=== PATIENT | female | born 1965 | race Caucasian/White ===

== ENCOUNTER 2019-08-30 06:15 | Emergency (ER) | payer OTHER ==
--- OUTSIDE RECORDS SUMMARY | 2019-08-30 06:18 | XMS REPORT | Clinical Summary ---
:1965 Author Organization [facility] Address [address] [place] [address] Care Team Providers Name Role Phone Asked, No Pcp Primary Care Provider Unavailable Allergies No Known Allergies Medications Not on file Active Problems Not on file Encounters Date Type Specialty Care Team Description 10/28/2018 Emergency Emergency Medicine Jose Maria Duron in, unspecified MD Bib type (Primary D x) after 08/29/2018 Social History Tobacco Use Types Packs/Day Years Used Date Never Assessed Sex Assigned at Date Recorded Not on file Job Start Date Occupation Industry Not on file Not on file Not on file Travel History Travel Start Travel End No recent travel history available. Last Filed Vital Signs Vital Sign Reading Time Taken Comments Blood Pressure 120/80 10/28/2018 10:49 PM CDT Pulse 70 10/28/2018 10:49 PM CDT Temperature 36.7 C (98 F) 10/28/2018 9:17 PM CDT Respiratory Rate 18 10/28/2018 10:49 PM CDT Oxygen Saturation 100% 10/28/2018 10:49 PM CDT Inhaled Oxygen Concentration - - Weight - - Height 165.1 cm (5' 5") 10/28/2018 6:40 PM CDT Body Mass Index - - Plan of Treatment Health Maintenance Due Date Last Done Comments CERVICAL CANCER SCREENING 07/26/1984 BREAST CANCER SCREENING 07/26/2013 COLONOSCOPY SCREENING 07/26/2013 SHINGLES VACCINES (#1) 07/26/2013 INFLUENZA VACCINE 09/19/2019 Procedures Procedure Name Priority Date/Time Associated Comments Diagnosis CT ANGIOGRAM PE CHEST STAT 10/28/2018 10:01 Re sults for this PM CDT procedure are i n the results section. ECG ED PRELIMINARY Routine 10/28/2018 7:34 Resul ts for this INTERPRETATION PM CDT procedure are in the results section. XR CHEST 2 VW STAT 10/28/2018 7:20 Results fo r this PM CDT procedure are i n the results section. ESTIMATED GFR STAT 10/28/2018 7:05 Results fo r this PM CDT procedure are i n the results section. B NATRIURETIC PEPTIDE STAT 10/28/2018 7:05 Re sults for this PM CDT procedure are i n the results section. TROPONIN STAT 10/28/2018 7:05 Results for this PM CDT procedure are i n the results section. COMPREHENSIVE METABOLIC STAT 10/28/2018 7:05 Results for this PANEL PM CDT procedure are i n the results section. HC COMPLETE BLD COUNT STAT 10/28/2018 7:05 Re sults for this W/AUTO DIFF PM CDT procedure are i n the results section. ECG 12-LEAD STAT 10/28/2018 6:36 Results for this PM CDT procedure are i n the results section. after 08/29/[address] Angiogram Pe Chest (10/28/2018 10:01 PM CDT) Specimen Narrative Performed At EXAMINATION: CT ANGIOGRAM PE CHEST [facility] CLINICAL HISTORY: abnl CXR atypical ch est pain TECHNIQUE: CT angiographic images of the chest were obtained during intravenous administration of iodinated contrast. Comp uterized reformatted images and 3-D MIP images were also obtain ed and archived (CT pulmonary embolus protocol). CT sc ans are performed using radiation dose reduction techniques. Technical factors are evaluated and adjusted to ensure appropriate moder ation of exposure. Automated dose management technology is applied to a djust radiation exposure while achieving a diagnostic quality image. CT imaging was performed with iterative reconstruction techniques and/or automated exposure control to reduce rad iation dose. COMPARISON: None. Findings: There are no filling defects within the pulmonary roger rial system to suggest a pulmonary embolus. Dissection is not well evaluated on this phase of cont rast. No aneurysm is seen. No consolidation or pleural effusion is seen. No pulmonary mass or nodule is seen. No mediastinal hematoma or lymphadenopat hy is seen. Visualized upper abdomen shows no acute abnormality. M oderate hiatal hernia is noted. IMPRESSION: 1. No evidence of pulmonary embolus. 2. Moderate hiatal hernia. 3. Otherwise no acute abnormality identi fied in the chest. [facility]-[id number] Procedure Note Hm Interface, Radiology Results Incoming - 10/28/2018 10:20 PM CDT EXAMINATION: CT ANGIOGRAM PE CHEST CLINICAL HISTORY: abnl CXR atypical evelin st pain TECHNIQUE: CT angiographic images of e chest were obtained during intravenous administration of iodinated contrast. Computerized reformatted images and 3-D MIP images were also obtained and archived (CT pulmonary embolus protocol). CT scans are performed using radiation dose reduction techniques. Technical factors are evaluated and adjusted to ensure appropriate moderation of exposure. Automated dose management technology is applied to adjust radiation exposure while achieving a diagnostic quality image. CT imaging was performed with iterative reconstruction techniques and/or automated exposure control to reduce radiation dose. COMPARISON: None. Findings: There are no filling defects within the pulmonary arterial system to suggest a pulmonary embolus. Dissection is not well evaluated on this phase of contrast. No aneurysm is seen. No consolidation or pleural effusion is seen. No pulmonary mass or nodule is seen. No mediastinal hematoma or lymphadenopat hy is seen. Visualized upper abdomen shows no acute abnormality. Moderate hiatal hernia is noted. IMPRESSION: 1. No evidence of pulmonary embolus. 2. Moderate hiatal hernia. 3. Otherwise no acute abnormality identi fied in the chest. [facility]-[id number] Performing Organization Address City/State/Zipcode Phone Number [facility] [address] [place] [address] ECG ED Preliminary Interpretation - Not an Order (10/28/2018 7:34 PM CDT) Narrative Performed At Jose Maria Duron MD 9 12:34 AM ECG ED Preliminary Interpretation - Not an Order Performed by: Jose Maria Duron MD Authorized by: Jose Maria Duron MD ECG reviewed by ED Physician in the abse nce of a porter bath: yes Interpretation: Interpretation: normal Rate: ECG rate: 75 ECG rate assessment: normal Rhythm: Rhythm: sinus rhythm QRS: QRS axis: Normal QRS intervals: Normal ST segments: ST segments: Normal T waves: T waves: normal Other findings: Other findings: poor R wave progression XR Chest 2 Vw (10/28/2018 7:20 PM CDT) Specimen Narrative Performed At EXAMINATION: XR CHEST 2 VW [facility] CLINICAL HISTORY: Chest Pain COMPARISON: 2 view chest from 2 IMPRESSION: PA and lateral radiographs of the chest was submitted for interpretation. The lungs are clear. The mediastinal contours and cardiac silhouette are un remarkable. Rounded density is seen in the region of the hiatus wh ich may represent a small hiatal hernia. This can be better evaluated wi CT chest as clinically indicated. The bones are unremarkable. [id number] Procedure Note Hm Interface, Radiology Results Incoming - 10/28/2018 7:25 PM CDT EXAMINATION: XR CHEST 2 VW CLINICAL HISTORY: Chest Pain COMPARISON: 2 view chest from 04/18/2011 IMPRESSION: PA and lateral radiographs of the chest was submitted for interpretation. The lungs are clear. The mediastinal contours and cardiac sofia houette are unremarkable. Rounded density is seen in the region of the hiatus which may represent a small hiatal hernia. This can be better evaluated with CT chest as clinically indicated. The bones are unremarkable. [facility]-[id number] Performing Organization Address [facility]/Zipcode Phone Number [facility] [address] [place] [phone] Estimated GFR (10/28/2018 7:05 PM CDT) Pathologist [facility] Estimated GFR 64 mL/min/1.73 [facility] Comment: HOSPITAL Catergory Units Interpretation G1 >=90 Normal or high G2 60-89 Mildly decreased G3a 45-59 Mildly to moderately decreas ed G3b 30-44 Moderately to severely decre ased G4 15-29 Severely decreased G5 <15 Kidney failure The eGFR was calculated using the Chronic Kidney Disea se Epidemiology Collaboration (CKD-EPI) equation. Interpretation is based on recommendations of the National Kidney Foundation-Kidney Disease Outcomes Riley lity Initiative (NKF-KDOQI) published in 2014. Specimen Plasma specimen Performing Organization Address [facility] Phone Number [facility] DEPARTMENT OF PATHOLOGY AND [address] [place] [address] [phone] [address] Troponin (10/28/2018 7:05 PM CDT) Troponin <0.006 0.000 - 0.040 [facility] Comment: ng/mL [facility] changed methodology eff ective: 06/24/2018 at 10:00 am The new method has a 99th percentile cutoff of 0.040 n g/mL Specimen Plasma specimen Performing Organization Address [facility] Phone Number [facility] DEPARTMENT OF PATHOLOGY AND [address] [place] [address] [phone] [address] CBC with platelet and differential (10/28/2018 7:05 PM CDT) WBC 10.44 4.50 - 11.00 [facility] k/uL HOSPITAL RBC 4.90 4.20 - 5.50 [facility] m/uL [facility] HGB 15.0 12.0 - 16.0 [facility] g/dL [facility] HCT 47.2 (H) 37.0 - 47.0 % [facility] MCV 96.3 82.0 - 100.0 [facility] MCH 30.6 27.0 - 34.0 pg [facility] MCHC 31.8 31.0 - 37.0 [facility] gdL [facility] RDW - SD 43.4 37.0 - 55.0 fL [facility] MPV 10.2 8.8 - 13.2 fL [facility] Platelet count 283 150 - 400 k/uL [facility] Nucleated RBC 0.00 /100 WBC [facility] Neutrophils 52.3 39.0 - 69.0 % [facility] Lymphocytes 38.0 25.0 - 45.0 % [facility] Monocytes 7.6 0.0 - 10.0 % [facility] Eosinophils 1.2 0.0 - 5.0 % [facility] Basophils 0.6 0.0 - 1.0 % [facility] Immature granulocytes 0.3Comment: 0.0 - 1.0 % [facility] "Immature [facility] granulocytes" (promyelocytes , myelocytes, metamyelocytes ) Specimen Blood Performing Organization Address City/State/Zipcode Phone Number [facility] DEPARTMENT OF PATHOLOGY AND [address] [place] [address] [phone] [address] B natriuretic peptide (10/28/2018 7:05 PM CDT) Pathologist Sig nature BNP 9 0 - 100 pg/mL [facility] Specimen Blood Performing Organization Address City/State/Zipcode Phone Number [facility] DEPARTMENT OF PATHOLOGY AND [address] [place] [address] [phone] [address] Comprehensive metabolic panel (10/28/2018 7:05 PM CDT) Sodium 143 135 - 148 [facility] mEq/L [facility] Potassium 4.0 3.5 - 5.0 [facility] mEq/L [facility] Chloride 102 98 - 112 [facility] mEq/L [facility] CO2 28 24 - 31 mEq/L [facility] Anion gap 13@ANIO 7 - 15 mEq/L [facility] BUN 15 6 - 20 mg/dL [facility] Creatinine 0.99 (H) 0.50 - 0.90 [facility] mg/dL [facility] Glucose 98 65 - 99 mg/dL [facility] Calcium 9.7 8.3 - 10.2 [facility] mg/dL [facility] Protein 8.2 6.3 - 8.3 [facility] Comment: g/dL HOSPITAL 4.6-7.0 g/dL 1 week 4.4-7.6 g/dL 7 months-1year 5.1-7.3 g/dL 1-2 years 5.6-7.5 g/dL >3 years 6.0-8.0 g/dL 18-150 6.3-8.3 g/dL Albumin 4.3 3.5 - 5.0 [facility] g/dL [facility] A/G ratio 1.1 0.7 - 3.8 [facility] Alkaline phosphatase 100 35 - 104 U/L [facility] AST 16 10 - 35 U/L [facility] ALT 12 5 - 50 U/L [facility] Total bilirubin 0.8 0.0 - 1.2 [facility] mg/dL [facility] Specimen Plasma specimen Performing Organization Address City/State/Zipcode Phone Number [facility] DEPARTMENT OF PATHOLOGY AND [address] [place] [phone] GENOMIC MEDICINE [address] [address] ECG 12 lead (10/28/2018 6:36 PM CDT) Pathologist Sig nature Ventricular rate 75 [facility]USE Atrial rate 75 [facility] IN interval 134 [facility] QRSD interval 72 [facility] QT interval 374 [facility] QTC interval 417 [facility] MUSE P axis 1 33 [facility] MUSE QRS axis 1 0 [facility] MUSE T wave axis 34 [facility] MUSE EKG impression Normal sinus [facility] MUSE rhythm-Normal ECG-In automated comparison with ECG of 19-APR-2011 05:14,-QRS duration has decreased-Electronicall y Signed By Sudheer CASTILLO, [facility] ([id number]) on 10/29/2018 10:55:33 PM Specimen Narrative Performed At This result has an attachment that is no t available. Performing Organization Address City/State/Zipcode Phone Number [facility] MUSE [address] [place] [address] after 08/29/2018 Advance Directives For more information, please contact: [phone] Type Date Recorded Patient Medical Associate Explanati on Advance Directives, Living Will and Medical Power of Credit Reference Clerk
[2019-08-30 06:53] LABS: Absolute Lymphocytes (CBC) 2.1 K/uL (0.7-4.9); Basophils % 0.3 % (0-1.3); Hematocrit 46.5 % (36.0-45.0); Lymphocytes % 34.6 % (15.3-44.8); MPV 8.7 fL (7.6-11.3)
[2019-08-30 07:10] LABS: Albumin 3.7 g/dL (3.4-5.0); Bilirubin Direct 0.1 mg/dL (0-0.2); Bilirubin Total 0.6 mg/dL (0.2-1.0); Potassium 4.1 mmol/L (3.5-5.1); Protein, Total 7.6 g/dL (6.4-8.2)
[2019-08-30] MEDS ORDERED: PROMETHAZINE INJ 25 MG/ML AMP ONE (07:57)
[2019-08-30] MEDS ORDERED: NA CHLORIDE 0.9% 1,000 ML ONE (07:57)
--- NOTE | 2019-08-30 08:19 | EDPHYS ---
Physician Documentation [facility] Name: Maris Rodríguez Age: 54 yrs Sex: Female : 1965 Arrival Date: 08/30/2019 Time: 06:16 Bed 6 Private MD: ED Physician Elio Bright HPI: 08/29 07:08 This 54 yrs old Female presents to ER via Wheelchair with complaints of jr8 Nausea/Vomiting/Diarrhea. 07:08 The patient presents to the emergency department with nausea, vomiting, diarrhea. jr8 Onset: The symptoms/episode began/occurred gradually, 3 day(s) ago. Possible causes: unknown. The symptoms are aggravated by food , The symptoms are alleviated by nothing. Associated signs and symptoms: Pertinent positives: body aches, chills, cough. Severity of symptoms: At their worst the symptoms were moderate in the emergency department the symptoms are unchanged. The patient has not experienced similar symptoms in the past. The patient has not recently seen a physician. 07:08 Patient stated that she was exposed to COVID. Now having symptoms . jr8 Historical: - Allergies: 06:18 PENICILLINS; sg - PSHx: 06:18 None; sg - Immunization history:: Adult Immunizations up to date. - Social history:: Smoking status: Patient denies any tobacco usage or history of. ROS: 07:08 Eyes: Negative for injury, pain, redness, and discharge, ENT: Negative for injury, jr8 pain, and discharge, Neck: Negative for injury, pain, and swelling, Cardiovascular: Negative for chest pain, palpitations, and edema, Back: Negative for injury and pain, MS/Extremity: Negative for injury and deformity, Skin: Negative for injury, rash, and discoloration, Neuro: Negative for headache, weakness, numbness, tingling, and seizure. 07:08 Constitutional: Positive for body aches, chills, malaise. 07:08 Respiratory: Positive for cough, Negative for dyspnea on exertion, shortness of breath, sputum production, wheezing. 07:08 Abdomen/GI: Positive for nausea, vomiting, and diarrhea, abdominal cramps, Negative for Exam: 07:08 Eyes: Pupils equal round and reactive to light, extra-ocular motions intact. Lids and jr8 lashes normal. Conjunctiva and sclera are non-icteric and not injected. Cornea within normal limits. Periorbital areas with no swelling, redness, or edema. ENT: Nares patent. No nasal discharge, no septal abnormalities noted. Tympanic membranes are normal and external auditory canals are clear. Oropharynx with no redness, swelling, or masses, exudates, or evidence of obstruction, uvula midline. Mucous membranes moist. Neck: Trachea midline, no thyromegaly or masses palpated, and no cervical lymphadenopathy. Supple, full range of motion without nuchal rigidity, or vertebral point tenderness. No Meningismus. Cardiovascular: Regular rate and rhythm with a normal S1 and S2. No gallops, murmurs, or rubs. Normal PMI, no JVD. No pulse deficits. Respiratory: Lungs have equal breath sounds bilaterally, clear to auscultation and percussion. No rales, rhonchi or wheezes noted. No increased work of breathing, no retractions or nasal flaring. Abdomen/GI: Soft, non-tender, with normal bowel sounds. No distension or tympany. No guarding or rebound. No evidence of tenderness throughout. Back: No spinal tenderness. No costovertebral tenderness. Full range of motion. Skin: Warm, dry with normal turgor. Normal color with no rashes, no lesions, and no evidence of cellulitis. MS/ Extremity: Pulses equal, no cyanosis. Neurovascular intact. Full, normal range of motion. Neuro: Awake and alert, GCS 15, oriented to person, place, time, and situation. Cranial nerves II-XII grossly intact. Motor strength 5/5 in all extremities. Sensory grossly intact. Cerebellar exam normal. Normal gait. Vital Signs: 06:18 BP 142 / 77; Pulse 100; Resp 18; Pulse Ox 100% on R/A; sg 07:00 BP 110 / 66; Pulse 58; Resp 18; Pulse Ox 100% ; bp 08:00 BP 96 / 56; Pulse 53; Resp 17; Temp 99; Pulse Ox 98% on R/A; bp 09:13 BP 105 / 65; Pulse 62; Resp 17; Temp 98.5; Pulse Ox 100% ; bp MDM: 06:20 [facility] Data reviewed: vital signs, nurses notes, lab test result(s), and as a result, I will jr8 discharge patient. Data interpreted: Pulse oximetry: on room air is 100 %. Interpretation: normal. Counseling: I had a detailed discussion with the patient and/or guardian regarding: the historical points, exam findings, and any diagnostic results supporting the discharge/admit diagnosis, lab results, the need for outpatient follow up, a family practitioner, to return to the emergency department if symptoms worsen or persist or if there are any questions or concerns that arise at home. Response to treatment: the patient's symptoms have markedly improved after treatment, patient is well hydrated. 08/29 06:24 Order name: Basic Metabolic Panel; Complete Time: :08/29 06:24 Order name: CBC with Diff; Complete Time: :08/29 06:24 Order name: Hepatic Function; Complete Time: 08/29 06:24 Order name: Lipase; Complete Time: :08/29 06:24 Order name: COVID-19 8 08/29 06:24 Order name: IV Saline Lock; Complete Time: 07:08/29 06:24 Order name: Labs collected and sent; Complete Time: : Administered Medications: 07:20 Drug: NS 0.9% 1000 ml Route: IV; Rate: 1000 ml; Site: right antecubital; bp 09:15 Follow up: IV Status: Completed infusion; IV Intake: 1000ml bp 07:20 Drug: Promethazine 12.5 mg Route: IVP; Site: right antecubital; bp 09:15 Follow up: Response: Nausea is decreased bp Disposition: 08/30 07:43 Co-signature as Attending Physician, Elio Bright MD I agree with the assessment and 4 plan of care. Disposition: 08/30/19 08:18 Discharged to Home. Impression: Nausea and vomiting, Diarrhea, unspecified. - Condition is Stable. - Discharge Instructions: Diarrhea, Adult, Nausea and Vomiting, Adult, COVID-19. - Prescriptions for promethazine 25 mg Oral Tablet - take 1 tablet by ORAL route every 6 hours As needed; 20 tablet. - Work release form, Medication Reconciliation Form, Thank You Letter, Antibiotic Education, Prescription Opioid Use form. - Follow up: Private Physician; When: 1 week; Reason: Recheck today's complaints, Continuance of care, Re-evaluation by your physician. - Problem is new. - Symptoms have improved. Addendum: 09/02/2019 08:57 Addendum: Called patient and contacted \T\ [phone] to notify of COVID-19 positive results. rn Feels better, questions answered, and told health department would contact for further recommendations. . Signatures: Dispatcher [employer] EDAlex Dean RN RN sg Nieto, Roman, MD MD rn Roszak, Josh, IRA PA jr8 Mat Rodriguez RN RN bp Elio Bright MD MD tw4 Corrections: (The following items were deleted from the chart) 08/29 09:15 08:18 08/30/2019 08:18 Discharged to Home. Impression: Nausea and vomiting; Diarrhea, bp unspecified. Condition is Stable. Forms are Medication Reconciliation Form, Thank You Letter, Antibiotic Education, Prescription Opioid Use. Follow up: Private Physician; When: 1 week; Reason: Recheck today's complaints, Continuance of care, Re-evaluation by your physician. Problem is new. Symptoms have improved. jr8
--- NOTE | 2019-08-30 08:19 | ER ---
Nurse's Notes [facility] Name: Maris Rodríguez Age: 54 yrs Sex: Female : 1965 Arrival Date: 08/30/2019 Time: 06:16 Bed 6 Private MD: Diagnosis: Nausea and vomiting;Diarrhea, unspecified Presentation: 08/29 06:18 Acuity: OCTAVIO 3 sg 06:18 Chief complaint: Patient states: Cough this morning, reports having nausea and vomiting sg as well as diarrhea that began yesterday. States symptoms worsening this morning, denies chills/fever. Coronavirus screen: Proceed with normal triage. Ebola Screen: Patient negative for fever greater than or equal to 101.5 degrees Fahrenheit, and additional compatible Ebola Virus Disease symptoms Patient denies exposure to infectious person. Patient denies travel to an Ebola-affected area in the 21 days before illness onset. No symptoms or risks identified at this time. Initial Sepsis Screen: Does the patient meet any 2 criteria? No. Patient's initial sepsis screen is negative. Does the patient have a suspected source of infection? No. Patient's initial sepsis screen is negative. Risk Assessment: Do you want to hurt yourself or someone else? Patient reports no desire to harm self or others. Onset of symptoms was August 30, 2019. Care prior to arrival: None. Transition of care: patient was not received from another setting of care. 06:18 Method Of Arrival: Wheelchair sg Triage Assessment: 07:00 General: Appears distressed, uncomfortable, Behavior is cooperative, appropriate for bp age, anxious. Pain: Denies pain. EENT: No deficits noted. Neuro: No deficits noted. Cardiovascular: Rhythm is sinus rhythm. Respiratory: Airway is patent. GI: Reports diarrhea, nausea, vomiting. : No signs and/or symptoms were reported regarding the genitourinary system. Derm: No deficits noted. Musculoskeletal: No deficits noted. Historical: - Allergies: 06:18 PENICILLINS; sg - PSHx: 06:18 None; sg - Immunization history:: Adult Immunizations up to date. - Social history:: Smoking status: Patient denies any tobacco usage or history of. Screenin:42 Abuse screen: Denies threats or abuse. Nutritional screening: No deficits noted. ea Tuberculosis screening: No symptoms or risk factors identified. Fall Risk IV access (20 points). Assessment: 06:43 General: Appears in no apparent distress. Behavior is calm, cooperative, appropriate ea for age. Pain: Complains of pain in abdomen. Neuro: Level of Consciousness is awake, alert, obeys commands, Oriented to person, place, time. Cardiovascular: Patient's skin is warm and dry. Respiratory: Airway is patent Respiratory effort is even, unlabored, Respiratory pattern is regular, symmetrical. GI: Abdomen is. 08:00 Reassessment: ALL CURRENT ORDERS COMPLETED. RESULTS PENDING. bp 08:29 Reassessment: D/C ON HOLD FOR IVF. bp 09:12 Reassessment: IVF COMPLETED. PT D/C HOME AMBULATORY FOR HOME QUARANTINE. DX WITH bp NAUSEA, VOMITING AND DIARRHEA. Vital Signs: 06:18 BP 142 / 77; Pulse 100; Resp 18; Pulse Ox 100% on R/A; sg 07:00 BP 110 / 66; Pulse 58; Resp 18; Pulse Ox 100% ; bp 08:00 BP 96 / 56; Pulse 53; Resp 17; Temp 99; Pulse Ox 98% on R/A; bp 09:13 BP 105 / 65; Pulse 62; Resp 17; Temp 98.5; Pulse Ox 100% ; bp ED Course: 06:16 Patient arrived in ED. ds1 06:17 Arm band placed on. sg 06:18 Triage completed. sg 06:20 Jhonny Goodwin PA is PHCP. jr8 06:20 Elio Bright MD is Attending Physician. jr8 06:43 Patient has correct armband on for positive identification. Bed in low position. Call ea light in reach. Side rails up X 1. 07:00 Inserted saline lock: 20 gauge in right antecubital area, using aseptic technique. bp Blood collected. 07:14 Mat Rodriguez, RN is Primary Nurse. bp 09:13 No provider procedures requiring assistance completed. IV discontinued, intact, bp bleeding controlled, No redness/swelling at site. Pressure dressing applied. Administered Medications: 07:20 Drug: NS 0.9% 1000 ml Route: IV; Rate: 1000 ml; Site: right antecubital; bp 09:15 Follow up: IV Status: Completed infusion; IV Intake: 1000ml bp 07:20 Drug: Promethazine 12.5 mg Route: IVP; Site: right antecubital; bp 09:15 Follow up: Response: Nausea is decreased bp Intake: 09:15 IV: 1000ml; Total: 1000ml. bp Outcome: 08:18 Discharge ordered by . jr8 09:15 Discharged to home ambulatory. bp 09:15 Condition: stable 09:15 Discharge instructions given to patient, Instructed on discharge instructions, follow up and referral plans. Demonstrated understanding of instructions, follow-up care, medications, Prescriptions given X 1. 09:15 Patient left the ED. bp Addendum: 09/02/2019 10:28 Addendum: COVID-19 Result: Positive result giiven to ED physician to notify pt. i w Physician: Luis Armando Pulido MD Physician was able to contact pt and pt was notified of positive COVID-19 swab result. Physician answered pt questions. Signatures: Alex Schilling, RN RN Suki Rangel ds1 Yoselyn Quick, RN RN iw Jhonny Goodwin PA PA jr8 Courtney Eddy RN Mat Ozuna ea RN RN bp Corrections: (The following items were deleted from the chart) 07 09:13 09:12 Reassessment: IVF COMPLETED. PT D/C HOME AMBULATORY FOR HOME QUARANTINE. DX WITH bp COVID bp 09/01 13:04 10:28 Addendum: COVID-19 Result: Positive result giiven to ED physician to notify pt. iw Physician: Mat Rodriguez RN Physician was able to contact pt and pt was notified of positive COVID-19 swab result. Physician answered pt questions. iw
[2019-08-30 09:26] VITALS: BP 105/65; TEMP 98.5; O2SAT 100
== END 2019-08-30 09:15 | disposition home or self-care (01) ==
LOC: ER 06:15
DX: U07.1 COVID-19 (principal); R19.7 Diarrhea, unspecified; Z88.0 Allergy status to penicillin
CPT/HCPCS: 96361; 85025; 80048; 36415; 80076; 83690; 96374; 99284; U0001; J2550; J7030

== ENCOUNTER 2020-10-08 06:34 | Emergency (ER) | payer BC, OTHER ==
--- NOTE | 2020-10-08 09:00 | ER ---
Nurse's Notes [facility] Name: Maris Rodríguez Age: 55 yrs Sex: Female : 1965 Arrival Date: 10/08/2020 Time: 06:40 Bed Waiting Private MD: Diagnosis: Presentation: 10/08 06:55 Chief complaint: Patient states: sore throat, cough, tired, denies fever, has been kg around some people who tested positive with covid. Coronavirus screen: Client denies travel out of the [place] in the last 14 days. Ebola Screen: Patient negative for fever greater than or equal to 101.5 degrees Fahrenheit, and additional compatible Ebola Virus Disease symptoms Patient denies exposure to infectious person. Patient denies travel to an Ebola-affected area in the 21 days before illness onset. No symptoms or risks identified at this time. Initial Sepsis Screen: Does the patient meet any 2 criteria? No. Patient's initial sepsis screen is negative. Does the patient have a suspected source of infection? No. Patient's initial sepsis screen is negative. Risk Assessment: Do you want to hurt yourself or someone else? Patient reports no desire to harm self or others. Onset of symptoms was October 08, 2020. 06:55 Method Of Arrival: Ambulatory kg 06:55 Acuity: OCTAVIO 4 kg Historical: - Allergies: 06:57 PENICILLINS; kg - Home Meds: 06:57 None [Active]; kg - PMHx: 06:57 None; kg - PSHx: 06:57 None; kg - Immunization history:: Client reports receiving the 2nd dose of the Covid vaccine. - Social history:: Smoking status: Patient denies any tobacco usage or history of. Vital Signs: 06:55 Pulse 60; Resp 18; Temp 97.7; Pulse Ox 100% on R/A; Weight 68.04 kg; Height 5 ft. 5 in. kg (165.10 cm); 06:57 BP 116 / 72; kg 06:55 Body Mass Index 24.96 (68.04 kg, 165.10 cm) kg ED Course: 06:40 Patient arrived in ED. bp1 06:57 Triage completed. kg 06:57 Arm band placed on. kg Administered Medications: No medications were administered Outcome: 08:59 Patient left the ED. iw Signatures: Yoselyn Quick RN RN iw Karis Brady Kristen, RN RN kg
[2020-10-08 09:03] VITALS: TEMP 97.7; O2SAT 100
[2020-10-08 09:04] VITALS: BP 116/72
== END 2020-10-08 08:59 | disposition left against medical advice (07) ==
LOC: ER 06:34
DX: Z53.21 Procedure and treatment not carried out due to patient leaving prior to being seen by health care provider (principal); Z20.822 Contact with and (suspected) exposure to COVID-19
CPT/HCPCS: 99281; U0003

== ENCOUNTER 2021-01-09 09:55 | Emergency (ER) | payer BC ==
[2021-01-09] MEDS ORDERED: ONDANSETRON 4 MG (ODT) TAB ONE (11:21)
[2021-01-09] MEDS ORDERED: BENZONATATE 100 MG CAP PO ONE (11:21)
--- NOTE | 2021-01-09 12:03 | RAD REPORT ---
EXAM DESCRIPTION: RAD - Chest Pa And Lat (2 Views) - 01/09/2021 11:54 am CLINICAL HISTORY: Cough;Congestion Chest pain. COMPARISON: Chest Single View dated 04/25/2016; Chest Single View dated 04/24/2016; CHEST PA AND LAT 2 V IEW dated 12/04/2012 FINDINGS: The lungs are clear. The heart is normal in size. No displaced fractures. Small hiatal her christin. IMPRESSION: No acute or concerning finding suspected.
[2021-01-09 12:18] LABS: SARS-COV-2 RT PCR NEGATIVE (NEGATIVE)
--- NOTE | 2021-01-09 12:35 | EDPHYS ---
Physician Documentation [facility] Name: Maris Rodríguez Age: 55 yrs Sex: Female : 1965 Arrival Date: 01/09/2021 Time: 09:56 Bed 10 Private MD: ED Physician Christopher Dhaliwal HPI: 01/09 10:36 This 55 yrs old Female presents to ER via Ambulatory with complaints of Cough, No Taste kb or Smell. 10:36 The patient or guardian reports cough, that is intermittent, described as moderate, kb difficulty breathing, flu symptoms, myalgias. Onset: The symptoms/episode began/occurred 2 day(s) ago. Severity of symptoms: At their worst the symptoms were moderate, in the emergency department the symptoms are unchanged. Modifying factors: The symptoms are alleviated by nothing, the symptoms are aggravated by nothing. Associated signs and symptoms: Pertinent positives: rhinorrhea. The patient has not experienced similar symptoms in the past. The patient has not recently seen a physician. Pt reports malaise, cough, congestion, rib pain from cough, shortness of breath, loss of taste and smell that started 2-3 days ago. . Historical: - Allergies: 10:27 PENICILLINS; aa5 - Home Meds: 10:28 None [Active]; aa5 - PMHx: 10:28 None; aa5 - Immunization history:: Client reports receiving the 2nd dose of the Covid vaccine. - Social history:: Smoking status: Patient denies any tobacco usage or history of. ROS: 10:36 Constitutional: Negative for fever, chills, and weight loss. kb 10:36 ENT: Positive for sinus congestion. 10:36 Respiratory: Positive for cough, shortness of breath, Negative for dyspnea on exertion, hemoptysis, orthopnea, pleurisy, shortness of breath, sputum production, wheezing. 10:36 All other systems are negative. Exam: 10:37 Constitutional: This is a well developed, well nourished patient who is awake, alert, kb and in no acute distress. Head/Face: Normocephalic, atraumatic. ENT: Moist Mucous membranes Respiratory: Respirations even and unlabored. No increased work of breathing, no retractions or nasal flaring. Skin: Warm, dry with normal turgor. Normal color. MS/ Extremity: Pulses equal, no cyanosis. Neurovascular intact. Full, normal range of motion. Neuro: Awake and alert, GCS 15, oriented to person, place, time, and situation. Moves all extremities. Normal gait. Psych: Awake, alert, with orientation to person, place and time. Behavior, mood, and affect are within normal limits. Vital Signs: 10:28 BP 121 / 71; Pulse 84; Resp 20 S; Temp 97.7(TE); Pulse Ox 100% on R/A; Weight 68.04 kg aa5 (R); Height 5 ft. 5 in. (165.10 cm) (R); 10:28 Body Mass Index 24.96 (68.04 kg, 165.10 cm) aa5 MDM: 10:31 Patient medically screened. kb 10:37 Data reviewed: vital signs, nurses notes. Data interpreted: Pulse oximetry: on room air kb is 100 %. Interpretation: normal. 12:30 Counseling: I had a detailed discussion with the patient and/or guardian regarding: the kb historical points, exam findings, and any diagnostic results supporting the discharge/admit diagnosis, lab results, radiology results, the need for outpatient follow up, a family practitioner, to return to the emergency department if symptoms worsen or persist or if there are any questions or concerns that arise at home. 01/09 10:32 Order name: COVID-19/FLU A+B (Document "Date of Onset" if Symptomatic); Complete Time: kb 12:19 01/09 10:35 Order name: Chest Pa And Lat (2 Views) XRAY; Complete Time: 12:15 kb Administered Medications: 11:44 Drug: Ondansetron 4 mg Route: PO; iw 12:47 Follow up: Response: No adverse reaction ld1 11:44 Drug: Tessalon Perle (benzonatate) 100 mg Route: PO; iw 12:47 Follow up: Response: No adverse reaction ld1 12:47 Drug: SOLU-Medrol (methylPREDNISolone sodium succinate) 125 mg Route: IM; Site: left ld1 gluteus; 12:47 Follow up: Response: No adverse reaction ld1 Disposition: 13:40 Co-signature as Attending Physician, Christopher Dhaliwal MD I agree with the assessment and kdr plan of care. Disposition Summary: 01/09/21 12:34 Discharge Ordered Location: Home kb Condition: Stable kb Diagnosis - Acute upper respiratory infection, unspecified kb Followup: kb - With: Emergency Department - When: As needed - Reason: Worsening of condition Followup: kb - With: Private Physician - When: 2 - 3 days - Reason: Recheck today's complaints, Continuance of care, Re-evaluation by your physician Discharge Instructions: - Discharge Summary Sheet kb - Upper Respiratory Infection, Adult, [id number] kb - Viral Respiratory Infection, [id number] kb Forms: - Medication Reconciliation Form kb - Thank You Letter kb - Antibiotic Education kb - Prescription Opioid Use kb Prescriptions: - Protonix 40 mg Oral Tablet - take 1 tablet by ORAL route once daily; 30 tablet; Refills: 0, Product kb Selection Permitted - Zofran 4 mg Oral Tablet - take 1 tablet by ORAL route every 6 hours As needed; 20 tablet; Refills: 0, kb Product Selection Permitted - Tessalon Perles 100 mg Oral Capsule - take 1 capsule by ORAL route every 8 hours As needed; 15 capsule; Refills: 0, kb Product Selection Permitted Signatures: Dispatcher [employer] EDKim Lehman, OFFICE 365 CONSULTANT-C OFFICE 365 CONSULTANT-Ckb Christopher Dhaliwal MD MD kdr Yoselyn Quick RN RN iw Yesika Hare RN RN aa5 Haritha Edouard RN RN ld1 Corrections: (The following items were deleted from the chart) 10:37 10:36 Respiratory: Positive for cough, Negative for dyspnea on exertion, hemoptysis, kb orthopnea, pleurisy, shortness of breath, sputum production, wheezing, kb
--- NOTE | 2021-01-09 12:35 | ER ---
Nurse's Notes [facility] Name: Maris Rodríguez Age: 55 yrs Sex: Female : 1965 Arrival Date: 01/09/2021 Time: 09:56 Bed 10 Private MD: Diagnosis: Acute upper respiratory infection, unspecified Presentation: 01/09 10:28 Chief complaint: Patient states: cough, no smell, and no taste x 3-4 days ago. Pt aa5 states "my ribs hurt from coughing so much". Coronavirus screen: cough unrelated to allergies. Ebola Screen: No symptoms or risks identified at this time. Initial Sepsis Screen: Does the patient meet any 2 criteria? No. Patient's initial sepsis screen is negative. Does the patient have a suspected source of infection? Yes:. Risk Assessment: Do you want to hurt yourself or someone else? Patient reports no desire to harm self or others. Onset of symptoms was December 2020. 10:28 Acuity: OCTAVIO 4 aa5 10:28 Method Of Arrival: Ambulatory aa5 Triage Assessment: 12:55 General: Appears in no apparent distress. comfortable, Behavior is calm, cooperative, ld1 appropriate for age. Pain: Denies pain. Cardiovascular: Capillary refill < 3 seconds Patient's skin is warm and dry. Respiratory: Airway is patent Respiratory effort is even, unlabored, Respiratory pattern is regular, symmetrical. Historical: - Allergies: 10:27 PENICILLINS; aa5 - Home Meds: 10:28 None [Active]; aa5 - PMHx: 10:28 None; aa5 - Immunization history:: Client reports receiving the 2nd dose of the Covid vaccine. - Social history:: Smoking status: Patient denies any tobacco usage or history of. Screenin:55 Abuse screen: Denies threats or abuse. Denies injuries from another. Nutritional ld1 screening: No deficits noted. Tuberculosis screening: No symptoms or risk factors identified. Fall Risk None identified. Vital Signs: 10:28 BP 121 / 71; Pulse 84; Resp 20 S; Temp 97.7(TE); Pulse Ox 100% on R/A; Weight 68.04 kg aa5 (R); Height 5 ft. 5 in. (165.10 cm) (R); 10:28 Body Mass Index 24.96 (68.04 kg, 165.10 cm) aa5 ED Course: 09:56 Patient arrived in ED. aa5 10:27 Arm band placed on. aa5 10:29 Triage completed. aa5 10:31 [facility] kb 10:31 Christopher Dhaliwal MD is Attending Physician. kb 10:44 Yoselyn Quick, RN is Primary Nurse. iw 11:54 Chest Pa And Lat (2 Views) XRAY In Process Unspecified. EDMS 12:55 Patient has correct armband on for positive identification. Placed in gown. Bed in low ld1 position. Call light in reach. Side rails up X2. Pulse ox on. NIBP on. 12:55 No provider procedures requiring assistance completed. Patient did not have IV access ld1 during this emergency room visit. Administered Medications: 11:44 Drug: Ondansetron 4 mg Route: PO; iw 12:47 Follow up: Response: No adverse reaction ld1 11:44 Drug: Tessalon Perle (benzonatate) 100 mg Route: PO; iw 12:47 Follow up: Response: No adverse reaction ld1 12:47 Drug: SOLU-Medrol (methylPREDNISolone sodium succinate) 125 mg Route: IM; Site: left ld1 gluteus; 12:47 Follow up: Response: No adverse reaction ld1 Outcome: 12:34 Discharge ordered by . kb 12:56 Discharged to home ambulatory. ld1 12:56 Condition: stable 12:56 Discharge instructions given to patient, Instructed on discharge instructions, follow up and referral plans. medication usage, Demonstrated understanding of instructions, follow-up care, medications, Prescriptions given X 3. 12:56 Patient left the ED. ld1 Signatures: Dispatcher [employer] EDMS Kim Land FNP-C FNP-Ckb Williams, Irene, RN RN iw Yesika Hare RN RN aa5 Haritha Edouard RN RN ld1 Corrections: (The following items were deleted from the chart) 10:30 10:28 Pulse 84bpm; Resp 20bpm; Spontaneous; Pulse Ox 100% RA; Temp 97.7F Temporal; aa5 68.04 kg Reported; Height 5 ft. 5 in. Reported; BMI: 24.9; aa5
[2021-01-09] MEDS ORDERED: METHYLPREDNISOLONE 125 MG INJ ONE (12:42)
[2021-01-09 13:01] VITALS: BP 121/71; TEMP 97.7; O2SAT 100
== END 2021-01-09 12:56 | disposition home or self-care (01) ==
LOC: ER 09:55
DX: J06.9 Acute upper respiratory infection, unspecified (principal); Z88.0 Allergy status to penicillin; Z20.822 Contact with and (suspected) exposure to COVID-19
CPT/HCPCS: 0240U; 71046; 96372; 99284; J2930

== ENCOUNTER 2021-07-22 14:09 | Emergency (ER) | payer BC ==
--- OUTSIDE RECORDS SUMMARY | 2021-07-22 14:13 | XMS REPORT | Continuity of Care Document ---
:1965 Author Organization [facility] t Address [address] [place] [address] Care Team Providers Name Role Phone Unknown Primary Care Physician Unavailable JAZMIN Attending Clinician Unavailable Myke LEE Attending Clinician Unavailable Payers Payer Name Policy Type Policy Number Effective Date Expiration Date S [facility] [id number] 2021 00:00:00 Problems This patient has no known problems. Allergies, Adverse Reactions, Alerts Allergy Allergy Status Severity Reaction(s) Onset Inactive Treating Comm ents Source Name Type Date Date Clinician Penicill Propensi Active Swelling [place] ins ty to 4-12 Health adverse 00:00: reaction 00 s Social History Social Habit Start Date Stop Date Quantity Comments Source Exposure to SARS-CoV-2 Not sure [facility] (event) Sex Assigned At [birth year] F [place] [facility] 00:00:00 00:00:00 Smoking Status Start Date Stop Date Source Tobacco smoking consumption unknown [facility] Medications This patient has no known medications. Procedures This patient has no known procedures. Encounters Start End Encounter Admission Attending Care Care Encounter Source Date/Time Date/Time Type Type Clinicians Facility Department ID 2021-07-04 Outpatient [facility] [id number] [place] 12:41:48 [id number] [facility] 2021-06-13 Outpatient [place], [facility] [id number] [place] 12:37:13 [facility] [id number] [facility] 2021-05-30 Outpatient [place], [facility] [id number] [place] 09:12:12 [id number] 2021-05-29 Outpatient [place], [facility] [id number] [place] 08:20:00 SIRUNYA [id number] [facility] 2021-05-28 Outpatient [facility] [id number] [place] 08:08:43 [id number] [facility] 2021-05-26 Outpatient [facility] [id number] [place] 10:31:21 [id number] [facility] 2021-05-24 Outpatient [facility] [id number] [place] 12:04:52 [id number] [facility] 2021-05-22 Outpatient [place], [facility] [id number] [place] 11:24:46 SIRUNYA [id number] [facility] 2021-06-13 2021-06-13 Office [place], [facility] 4 [id number] [place] 12:45:00 16:02:42 Visit Sir[place] [id number] He alth [id number] 1 2021-06-06 2021-06-06 Telephone Sudha Stringer [facility] 4 [id number] [place] 00:00:00 00:00:00 Sudha Stringer [id number] Health [id number] 1 2021-05-30 2021-05-30 Office [place], [facility] 4 [id number] [place] 09:45:00 10:12:36 Visit [place] [id number] He alth [id number] 1 Results This patient has no known results.
--- NOTE | 2021-07-22 16:20 | ER ---
Nurse's Notes [facility] Name: Maris Rodríguez Age: 55 yrs Sex: Female : 1965 Arrival Date: 07/22/2021 Time: 14:13 Bed 10 Private MD: Diagnosis: Encounter for screening for other viral diseases Presentation: 07/22 14:22 Chief complaint: Patient states: Had Covid positive result at [facility] today. Is going ll1 on a cruise and wants to be retested. No symptoms. Coronavirus screen: Vaccine status: Patient reports receiving the 2nd dose of the covid vaccine. Client denies travel out of the [place] in the last 14 days. At this time, the client does not indicate any symptoms associated with coronavirus-19. Ebola Screen: Patient denies travel to an Ebola-affected area in the 21 days before illness onset. Initial Sepsis Screen: Does the patient meet any 2 criteria? No. Patient's initial sepsis screen is negative. Does the patient have a suspected source of infection? No. Patient's initial sepsis screen is negative. Risk Assessment: Do you want to hurt yourself or someone else? Patient reports no desire to harm self or others. Onset of symptoms is unknown. 14:22 Method Of Arrival: Ambulatory ll1 14:22 Acuity: OCTAVIO 5 ll1 Triage Assessment: 14:40 General: Appears in no apparent distress. Behavior is calm, cooperative. jg9 Historical: - Allergies: 14:24 PENICILLINS; ll1 - PMHx: 14:24 None; ll1 - PSHx: 14:24 None; ll1 - Immunization history:: Client reports receiving the 2nd dose of the Covid vaccine. - Social history:: Smoking status: Patient denies any tobacco usage or history of. Screenin:42 Abuse screen: Denies threats or abuse. Denies injuries from another. Nutritional jg9 screening: No deficits noted. Tuberculosis screening: No symptoms or risk factors identified. Fall Risk None identified. Assessment: 14:42 Reassessment: No changes from previously documented assessment. Patient and/or family jg9 updated on plan of care and expected duration. Pain level reassessed. Patient is alert, oriented x 3, equal unlabored respirations, skin warm/dry/pink. Pain: Denies pain. Vital Signs: 14:22 BP 121 / 84; Pulse 78; Resp 16; Temp 98.5; Pulse Ox 98% ; Pain 0/10; ll1 15:25 BP 124 / 86; Pulse 80; Resp 15 S; Pulse Ox 99% on R/A; Pain 0/10; jg9 ED Course: 14:13 Patient arrived in ED. jj6 14:24 Triage completed. ll1 14:24 Arm band placed on. ll1 14:25 Karmen Francis, RN is Primary Nurse. jg9 14:26 Bradlye Watkins PA is PHCP. cp 14:26 Bradley Salcedo MD is Attending Physician. cp 14:42 Patient has correct armband on for positive identification. jg9 16:23 No provider procedures requiring assistance completed. jg9 16:23 Patient did not have IV access during this emergency room visit. jg9 Administered Medications: No medications were administered Medication: 14:42 VIS not applicable for this client. jg9 Outcome: 16:19 Discharge ordered by MD. cp 16:23 Discharged to home ambulatory. jg9 16:23 Condition: stable 16:23 Discharge instructions given to patient, Instructed on discharge instructions, follow up and referral plans. Demonstrated understanding of instructions, follow-up care. 16:24 Patient left the ED. jg9 Signatures: Bradley Watkins PA PA cp Lewis, Lynsay, RN RN ll1 Karmen Galeano jj6 Karmen Francis RN RN jg9
--- NOTE | 2021-07-22 16:20 | EDPHYS ---
Physician Documentation [facility] Name: Maris Rodríguez Age: 55 yrs Sex: Female : 1965 Arrival Date: 07/22/2021 Time: 14:13 Bed 10 Private MD: CONSTANZA Physician Bradley Salcedo HPI: 07/22 15:15 This 55 yrs old Female presents to ER via Ambulatory with complaints of RECENT POSITIVE cp ON AT HOME COVID. 15:15 requests COVID-19 test as patient reports recent positive test at local [facility]. Is cp planning to go on cruise. Reports being vaccinated for COVID-19 and denies any current symptoms. Historical: - Allergies: 14:24 PENICILLINS; ll1 - PMHx: 14:24 None; ll1 - PSHx: 14:24 None; ll1 - Immunization history:: Client reports receiving the 2nd dose of the Covid vaccine. - Social history:: Smoking status: Patient denies any tobacco usage or history of. ROS: 15:20 Constitutional: Negative for body aches, chills, fever, poor PO intake. cp 15:20 Eyes: Negative for injury, pain, redness, and discharge. cp 15:20 ENT: Negative for drainage from ear(s), ear pain, sore throat, difficulty swallowing, difficulty handling secretions. 15:20 Cardiovascular: Negative for chest pain. 15:20 Respiratory: Negative for cough, shortness of breath, wheezing. 15:20 Abdomen/GI: Negative for abdominal pain, nausea, vomiting, and diarrhea. 15:20 Neuro: Negative for altered mental status, headache, numbness, weakness. 15:20 All other systems are negative. Exam: 15:25 Constitutional: The patient appears in no acute distress, alert, awake, comfortable, cp non-toxic, well developed, well nourished. 15:25 Head/Face: Normocephalic, atraumatic. cp 15:25 Cardiovascular: Rate: normal, Rhythm: regular. 15:25 Respiratory: the patient does not display signs of respiratory distress, Respirations: normal, no use of accessory muscles, no retractions, labored breathing, is not present, Breath sounds: are clear throughout, no decreased breath sounds, no stridor, no wheezing. 15:25 Abdomen/GI: Exam negative for discomfort, distension, guarding, Inspection: abdomen appears normal. 15:25 Neuro: Orientation: to person, place \\T\\ time. Mentation: is normal. Vital Signs: 14:22 BP 121 / 84; Pulse 78; Resp 16; Temp 98.5; Pulse Ox 98% ; Pain 0/10; ll1 15:25 BP 124 / 86; Pulse 80; Resp 15 S; Pulse Ox 99% on R/A; Pain 0/10; jg9 MDM: 14:26 Patient medically screened. cp 16:00 Differential Diagnosis flu, COVID-19. cp 16:19 Data reviewed: vital signs, nurses notes, lab test result(s), and as a result, I will cp discharge patient. 16:19 Counseling: I had a detailed discussion with the patient and/or guardian regarding: the cp historical points, exam findings, and any diagnostic results supporting the discharge/admit diagnosis, lab results, to return to the emergency department if symptoms worsen or persist or if there are any questions or concerns that arise at home. 07/22 14:49 Order name: COVID-19 SARS RT PCR (Document "Date of Onset" if Symptomatic); Complete jg9 Time: 16:15 04 16:15 Interpretation: Reviewed. cp Administered Medications: No medications were administered Disposition Summary: 07/22/21 16:19 Discharge Ordered Location: Home cp Problem: new cp Symptoms: are unchanged cp Condition: Stable cp Diagnosis - Encounter for screening for other viral diseases cp Followup: cp - With: Private Physician - When: As needed - Reason: Worsening of condition Discharge Instructions: - Discharge Summary Sheet cp - COVID-19: What Your Test Results Mean - [facility] cp - COVID-19 Frequently Asked Questions cp - Things to Know about the COVID-19 Pandemic - [facility] cp Forms: - Medication Reconciliation Form cp - Thank You Letter cp - Antibiotic Education cp - Prescription Opioid Use cp Signatures: Dispatcher [employer] EDMS Bradley Watkins PA PA cp Lewis, Lynsay RN RN ll1
[2021-07-22 16:29] VITALS: TEMP 98.5
[2021-07-22 16:30] VITALS: BP 124/86; O2SAT 99
== END 2021-07-22 16:24 | disposition home or self-care (01) ==
LOC: ER 14:09
DX: Z20.822 Contact with and (suspected) exposure to COVID-19 (principal)
CPT/HCPCS: 99281; U0003

== ENCOUNTER 2024-01-24 16:36 | Emergency (ER) | payer BC ==
--- NOTE | 2024-01-24 16:54 | ER ---
Nurse's Notes [facility] Name: Maris Rodríguez Age: 58 yrs Sex: Female : 1965 Arrival Date: 01/24/2024 Time: 16:36 Bed Waiting Private MD: Diagnosis: Assessment: 01/23 16:52 Reassessment: called pt to exam room. Sona, LARRY registration staff states that patient ss left the ER because she felt like she was not getting taken to an exam room quick enough. ED Course: 16:38 Patient arrived in ED. ra3 16:39 Felisa Ham MD is Attending Physician. sp3 Administered Medications: No medications were administered Outcome: 16:53 Eloped from waiting room, before seeing physician ss 16:53 Patient left the ED. Signatures: Celia Paredes, ALISHA RN Felisa Ham MD MD sp3 Sona Kan ra3
== END 2024-01-24 16:53 | disposition left against medical advice (07) ==
LOC: ER 16:36
DX: Z02.9 Encounter for administrative examinations, unspecified (principal)